=== PATIENT | male | born 1995 | race Caucasian/White ===

== ENCOUNTER 2020-04-23 18:32 | Emergency (ER) | payer BC ==
[2020-04-23] MEDS ORDERED: TEGRETOL 200 M200 MG PO (19:54)
[2020-04-23] MEDS ORDERED: AMOXICILLIN500 M1 PO (19:54)
== END 2020-04-23 20:20 | disposition home or self-care (01) ==
LOC: ER1 18:32
DX: K08.89 Other specified disorders of teeth and supporting structures (principal); G50.0 Trigeminal neuralgia
CPT/HCPCS: 93005; 99283